=== PATIENT | male | born 1970 | race Caucasian/White ===

== ENCOUNTER → 2022-04-10 | Day surgery (SDC) | payer MEDICAID ==
[~2022-04-10] VITALS: Ht 176.5 cm; Wt 95.3 kg
[~2022-04-10] MED LIST: ACETAMINOPHEN 500MG TABLET PO NR; ACETYLCHOLINE CHLORIDE INTRAOCULAR SOLUTION 1:100 ELECTROLYTE DILUENT IO ONE; ATOR20TA65 PO; ATROPINE SULFATE 0.4MG/ML VIAL IV PRN; BALANCED SALT IRRIG SOLN 15ML ONE; BRIM10DR2 LEFTEYE; BUPIVACAINE HCL/PF 0.75% (7.5MG/ML) 10ML ONE; CIPROFLOXACIN 0.3% OPHTH SOLN 2.5ML ONE; DEXAMETHASONE 4MG/ML 1ML VIAL ONE; FENTANYL CITRATE/PF 50MCG/ML 2ML VIAL IV PRN; HYALURONATE SODIUM 10 MG/ML 0.55ML SYRINGE IO ONE; LACTATED RINGERS 1,000 ML IV SCH; LATA5DRO LEFTEYE; LIDOCAINE HCL 2%/EPINEPHRINE 1:100,000 20 ML VIAL INFIL ONE; LIDOCAINE HCL/PF 2% 20 MG/ML 10ML VIAL ONE; LISI20TA31 PO; MIDAZOLAM HCL 2 MG/2 ML VIAL ONE; MITOMYCIN 0.2 MG KIT OP NR; ONDANSETRON HCL 4MG/2ML INJ ONE; PREDNISOLONE ACETATE 1% OPHTH DROPS 5ML ONE; PROPOFOL 200MG/20ML VIAL IV ONE; TETRACAINE 0.5% OPHTH DROPS 4ML ONE
[2022-04-10] MEDS: NEO/POLYMYX B SULF/DEXAMETH OPHTH OINT 3.5GM LEFTEYE SCH ×2 (13:20→13:21)
== END | disposition home or self-care (01) ==
LOC: OR 07:16
PROVIDERS: ATTEND Ophthalmology
DX: H40.89 Other specified glaucoma (principal); I10 Essential (primary) hypertension; E78.00 Pure hypercholesterolemia, unspecified; E66.9 Obesity, unspecified; Z79.899 Other long term (current) drug therapy; Z98.890 Other specified postprocedural states; Z20.822 Contact with and (suspected) exposure to COVID-19
CPT/HCPCS: 66170; 87426; C9803; J1100; J2250; J2405; J2704; J3490